=== PATIENT | female | born 1935 | race Caucasian/White ===

== ENCOUNTER 2017-12-21 00:06 | Emergency (ER) | payer MEDICARE ==
[~2017-12-21 00:06] MED LIST: ALBU8.5H3 IH; FURO20TA6 PO; METO50TA18 PO; RAMI2.5C15 PO
== END 2017-12-21 00:52 | disposition home or self-care (01) ==
LOC: EDH 00:06
DX: I10 Essential (primary) hypertension (principal); R60.9 Edema, unspecified; Z88.0 Allergy status to penicillin; Z88.2 Allergy status to sulfonamides; Z91.041 Radiographic dye allergy status; Z88.6 Allergy status to analgesic agent; Z88.1 Allergy status to other antibiotic agents
CPT/HCPCS: 99281

== ENCOUNTER → 2019-04-23 | Outpatient (CLI) | payer MEDICARE ==
[~2019-04-23] MED LIST changes: -RAMI2.5C15 PO; +RAMI2.5C16 PO
[2019-04-23 14:23] LABS: PLATELET COUNT (AUTO) 209 K/uL (130-400); PLATELET FUNCTION ANALYSIS EPI > 192 SEC (55-192)
[2019-04-23 14:35] LABS: PLATELET FUNCTION ANALYSIS ADP 140 SEC (62-100)
== END | disposition home or self-care (01) ==
LOC: LAB 13:10
PROVIDERS: ATTEND Family Medicine
DX: R23.3 Spontaneous ecchymoses (principal)
CPT/HCPCS: 36415; 85576

== ENCOUNTER → 2019-07-01 | Outpatient (CLI) | payer MEDICARE ==
[2019-07-01 15:27] LABS: PLATELET COUNT (AUTO) 256 K/uL (130-400)
[2019-07-01 15:54] LABS: PLATELET FUNCTION ANALYSIS ADP 181 SEC (62-100); PLATELET FUNCTION ANALYSIS EPI 207 SEC (55-192)
== END | disposition home or self-care (01) ==
LOC: RAH 09:00
PROVIDERS: ATTEND Family Medicine
DX: T14.8XXA Other injury of unspecified body region, initial encounter (principal); M13.831 Other specified arthritis, right wrist; X58.XXXA Exposure to other specified factors, initial encounter; Y93.89 Activity, other specified; Y92.89 Other specified places as the place of occurrence of the external cause; Y99.8 Other external cause status
CPT/HCPCS: 36415; 73221; 85576

== ENCOUNTER → 2019-11-12 | Outpatient (CLI) | payer MEDICARE | END | disposition home or self-care (01) | LOC: OIH 14:20 | PROVIDERS: ATTEND Internal Medicine Cardiovascular Disease | DX: R06.00 Dyspnea, unspecified (principal); M41.80 Other forms of scoliosis, site unspecified; M47.815 Spondylosis without myelopathy or radiculopathy, thoracolumbar region | CPT/HCPCS: 71046 ==

== ENCOUNTER → 2020-12-08 | Outpatient (CLI) | payer MEDICARE | END | disposition home or self-care (01) | LOC: SHCH 13:00 | PROVIDERS: ATTEND Internal Medicine Cardiovascular Disease | DX: I87.2 Venous insufficiency (chronic) (peripheral) (principal) | CPT/HCPCS: 93970 ==

== ENCOUNTER → 2021-04-21 | Outpatient (CLI) | payer MEDICARE ==
[~2021-04-21] MED LIST changes: -RAMI2.5C16 PO; +RAMI2.5C55 PO
== END | disposition home or self-care (01) ==
LOC: SHCH 09:56
PROVIDERS: ATTEND Internal Medicine Cardiovascular Disease
DX: I08.1 Rheumatic disorders of both mitral and tricuspid valves (principal); R55 Syncope and collapse; I27.20 Pulmonary hypertension, unspecified; Z95.3 Presence of xenogenic heart valve
CPT/HCPCS: 93306; 93356

== ENCOUNTER 2021-06-09 06:48 | Day surgery (SDC) | payer MEDICARE ==
[2021-06-07 11:30] LABS: EOSINOPHILS % (AUTO) 5.6 % (0.0-8.0); HEMATOCRIT 32.5 % (36-48); LYMPHOCYTES % (AUTO) 25.3 % (21.0-51.0); MEAN CORPUSCULAR HEMOGLOBIN 29.3 pg (27.0-33.0); MEAN CORPUSCULAR HGB CONC 32.6 g/dL (32.0-36.0); MEAN CORPUSCULAR VOLUME 89.8 fL (79-99); MONOCYTES % (AUTO) 8.1 % (3.0-13.0); NEUTROPHILS % (AUTO) 59.7 % (40.0-77.0); PLATELET COUNT (AUTO) 183 K/uL (130-400); RED BLOOD CELL COUNT(AUTO) 3.62 MIL/uL (4.00-5.50); RED CELL DISTRIBUTION WIDTH 12.2 % (11.0-15.5); WHITE BLOOD COUNT (AUTO) 6.8 K/uL (4.8-10.8)
[2021-06-07 11:41] LABS: CREATININE 0.8 mg/dL (0.5-1.5); POTASSIUM 4.7 mmol/L (3.5-5.1)
[2021-06-07 12:10] LABS: PROTHROMBIN TIME 10.9 SEC (9.6-11.6)
[2021-06-07 12:11] LABS: PARTIAL THROMBOPLASTIN TIME 25.1 SEC (26.3-35.5)
[2021-06-08 13:15] VITALS: BP 170/68
[2021-06-09] VITALS (10 sets, daily range): BP systolic 153–174; BP diastolic 41–68
[~2021-06-09] VITALS: Ht 165.1 cm; Wt 66.9 kg
[~2021-06-09 06:48] MED LIST changes: +0.9% NACL 500ML IV.SOLN 500 ML IV SCH; -ALBU8.5H3 IH; +ALBU8.5H8 IH; +FLUT1DIS4 IH; -FURO20TA6 PO; +HYDR25TA PO; +LOSA25TA41 PO; -RAMI2.5C55 PO
[2021-06-09] MEDS ORDERED: 0.9%NACL 1000ML 1,000 ML IV ONE (07:18)
[2021-06-09] MEDS ORDERED: BUPIVACAINE/PF 0.25% 30ML VIAL IJ ONE ×2 (08:28→08:49)
[2021-06-09] MEDS ORDERED: MIDAZOLAM HCL 1 MG/ML 2ML VIAL ONE ×2 (08:28→09:09)
[2021-06-09] MEDS ORDERED: LIDOCAINE HCL 1% MDV 50ML VIAL ONE (08:29)
[2021-06-09] MEDS ORDERED: VANCOMYCIN KIT 250 ML IV ONE ×2 (08:29→08:30)
[2021-06-09] MEDS ORDERED: FENTANYL CITRATE PF 50 MCG/1 ML 2ML VIAL ONE (08:29)
[2021-06-09] MEDS ORDERED: CLINDAMYCIN IVPB 600MG/50ML 100 ML IV ONE (09:00)
[2021-06-09] MEDS ORDERED: CLINDAMYCIN IVPB 600MG/50ML 50 ML IV ONE (15:00)
== END 2021-06-09 16:30 | disposition home or self-care (01) ==
LOC: DAH 06:48
PROVIDERS: ATTEND Internal Medicine Cardiovascular Disease
DX: I49.5 Sick sinus syndrome (principal); I10 Essential (primary) hypertension; I25.10 Atherosclerotic heart disease of native coronary artery without angina pectoris; F32.9 Major depressive disorder, single episode, unspecified; J45.909 Unspecified asthma, uncomplicated; Z79.01 Long term (current) use of anticoagulants; Z88.5 Allergy status to narcotic agent; Z88.8 Allergy status to other drugs, medicaments and biological substances; Z88.1 Allergy status to other antibiotic agents; Z91.040 Latex allergy status; Z88.0 Allergy status to penicillin
CPT/HCPCS: 33208; 36415; 71045; 80048; 85025; 85610; 85730; 93005; A4215; A4216; A4221; A4222; A4223 ×3; A4606; A4663; C1785; C1894; C1898 ×2; J2250 ×2; J3010; J3370 ×2; J3490 ×5; J7030; 99156; 99157

== ENCOUNTER 2021-06-29 00:49 | Emergency (ER) | payer MEDICARE ==
[~2021-06-29] VITALS: Ht 165.1 cm; Wt 66.2 kg
[~2021-06-29 00:49] MED LIST changes: -0.9% NACL 500ML IV.SOLN 500 ML IV SCH
[2021-06-29 01:29] VITALS: BP 142/53
[2021-06-29 02:56] LABS: BASOPHILS % (AUTO) 1.3 % (0.0-5.0); EOSINOPHILS % (AUTO) 9.3 % (0.0-8.0); HEMATOCRIT 34.1 % (36-48); LYMPHOCYTES % (AUTO) 30.6 % (21.0-51.0); MEAN CORPUSCULAR HEMOGLOBIN 29.4 pg (27.0-33.0); MEAN CORPUSCULAR HGB CONC 32.3 g/dL (32.0-36.0); MEAN CORPUSCULAR VOLUME 91.2 fL (79-99); NEUTROPHILS % (AUTO) 49.7 % (40.0-77.0); PLATELET COUNT (AUTO) 156 K/uL (130-400); RED BLOOD CELL COUNT(AUTO) 3.74 MIL/uL (4.00-5.50); RED CELL DISTRIBUTION WIDTH 12.3 % (11.0-15.5); WHITE BLOOD COUNT (AUTO) 8.6 K/uL (4.8-10.8)
[2021-06-29 02:59] LABS: ALBUMIN 3.9 g/dL (3.5-5.0); BILIRUBIN,TOTAL 0.3 mg/dL (0.2-1.0); CREATININE 0.7 mg/dL (0.5-1.5); TOTAL PROTEIN, SERUM 7.7 g/dL (6.0-8.3)
[2021-06-29] MEDS ORDERED: ORPHENADRINE CITRATE 30 MG/ML ML IV ONE (03:00)
[2021-06-29] MEDS ORDERED: LIDOP TP (04:13)
[2021-06-29] MEDS ORDERED: ORPH-43 PO (04:13)
== END 2021-06-29 04:39 | disposition home or self-care (01) ==
LOC: EDH 00:49
DX: M62.830 Muscle spasm of back (principal); I10 Essential (primary) hypertension; F43.9 Reaction to severe stress, unspecified; Z88.0 Allergy status to penicillin; Z88.1 Allergy status to other antibiotic agents; Z88.2 Allergy status to sulfonamides; Z88.5 Allergy status to narcotic agent; Z88.8 Allergy status to other drugs, medicaments and biological substances; Z88.6 Allergy status to analgesic agent; Z79.899 Other long term (current) drug therapy; Z79.51 Long term (current) use of inhaled steroids; Z95.0 Presence of cardiac pacemaker
CPT/HCPCS: 36415; 71045; 80053; 84484; 85025; 93005 ×2; 96374; 99285; J2360

== ENCOUNTER 2021-08-20 16:32 | Emergency (ER) | payer MEDICARE ==
[~2021-08-20] VITALS: Ht 165.1 cm; Wt 68.0 kg
[~2021-08-20 16:32] MED LIST changes: +LIDOP TP; +ORPH-43 PO
[2021-08-20 16:34] VITALS: BP 136/55
[2021-08-20 16:35] VITALS: BP 136/55
[2021-08-20 18:51] LABS: EOSINOPHILS % (AUTO) 7.4 % (0.0-8.0); HEMATOCRIT 28.5 % (36-48); LYMPHOCYTES % (AUTO) 24.6 % (21.0-51.0); MEAN CORPUSCULAR HEMOGLOBIN 29.6 pg (27.0-33.0); MEAN CORPUSCULAR HGB CONC 33.3 g/dL (32.0-36.0); MEAN CORPUSCULAR VOLUME 88.8 fL (79-99); MONOCYTES % (AUTO) 9.5 % (3.0-13.0); NEUTROPHILS % (AUTO) 57.3 % (40.0-77.0); PLATELET COUNT (AUTO) 187 K/uL (130-400); RED BLOOD CELL COUNT(AUTO) 3.21 MIL/uL (4.00-5.50); RED CELL DISTRIBUTION WIDTH 12.6 % (11.0-15.5); WHITE BLOOD COUNT (AUTO) 6.2 K/uL (4.8-10.8)
[2021-08-20 19:04] LABS: CARBON DIOXIDE 28 mmol/L (21-32); CHLORIDE 103 mmol/L (101-111); CREATININE 0.8 mg/dL (0.5-1.5); GLOMERULAR FILTR. RATE CALC 72 mL/min (>60); GLUCOSE,RANDOM 102 mg/dL (70-105); POTASSIUM 4.2 mmol/L (3.5-5.1); SODIUM SERUM 138 mmol/L (136-145); UREA NITROGEN, BLOOD 25 mg/dL (7-18)
[2021-08-20 19:17] LABS: ALANINE AMINOTRANSFERASE 28 U/L (12-78); ALBUMIN 3.5 g/dL (3.5-5.0); ASPARTATE AMINOTRANSFERASE 19 U/L (10-37); BILIRUBIN,TOTAL 0.5 mg/dL (0.2-1.0); TOTAL PROTEIN, SERUM 7.2 g/dL (6.0-8.3)
[2021-08-20 19:23] LABS: B-TYPE NATRIURETIC PEPTIDE 139 pg/mL (0-100)
[2021-08-20 19:24] LABS: CRP QUANTITATIVE < 2.00 mg/L (0.00-9.0)
== END 2021-08-20 19:50 | disposition home or self-care (01) ==
LOC: EDH 16:32
DX: I10 Essential (primary) hypertension (principal); I35.0 Nonrheumatic aortic (valve) stenosis; Z79.51 Long term (current) use of inhaled steroids; Z88.0 Allergy status to penicillin; Z88.1 Allergy status to other antibiotic agents; Z88.2 Allergy status to sulfonamides; Z88.5 Allergy status to narcotic agent; Z88.6 Allergy status to analgesic agent; Z88.8 Allergy status to other drugs, medicaments and biological substances; Z95.0 Presence of cardiac pacemaker; Z95.2 Presence of prosthetic heart valve; Z98.890 Other specified postprocedural states; Z79.899 Other long term (current) drug therapy
CPT/HCPCS: 36415; 71045; 80053; 83880; 84484; 85025; 86140; 93005

== ENCOUNTER 2022-12-03 10:49 | Emergency (ER) | payer MEDICARE ==
[~2022-12-03] VITALS: Ht 165.1 cm; Wt 65.3 kg
[2022-12-03 13:26] LABS: BASOPHILS % (AUTO) 1.2 % (0.0-5.0); EOSINOPHILS % (AUTO) 6.3 % (0.0-8.0); HEMATOCRIT 32.5 % (36-48); LYMPHOCYTES % (AUTO) 26.3 % (21.0-51.0); MEAN CORPUSCULAR HEMOGLOBIN 25.8 pg (27.0-33.0); MEAN CORPUSCULAR HGB CONC 31.4 g/dL (32.0-36.0); MEAN CORPUSCULAR VOLUME 82.3 fL (79-99); MONOCYTES % (AUTO) 9.7 % (3.0-13.0); NEUTROPHILS % (AUTO) 56.2 % (40.0-77.0); PLATELET COUNT (AUTO) 185 K/uL (130-400); RED BLOOD CELL COUNT(AUTO) 3.95 MIL/uL (4.00-5.50); RED CELL DISTRIBUTION WIDTH 15.7 % (11.0-15.5); WHITE BLOOD COUNT (AUTO) 7.7 K/uL (4.8-10.8)
[2022-12-03 13:37] LABS: CREATININE 0.7 mg/dL (0.5-1.5); POTASSIUM 4.3 mmol/L (3.5-5.1)
[2022-12-03 13:41] LABS: ALBUMIN 3.6 g/dL (3.5-5.0); TOTAL PROTEIN, SERUM 7.8 g/dL (6.0-8.3)
[2022-12-03 14:15] VITALS: BP 146/48
[2022-12-03 14:17] LABS: B-TYPE NATRIURETIC PEPTIDE 533 pg/mL (0-100)
[2022-12-03 14:36] LABS: APPEARANCE,URINE CLOUDY (CLEAR); BILIRUBIN,URINE NEGATIVE (NEGATIVE); COLOR,URINE LIGHT-YELLOW (YELLOW); GLUCOSE, URINE (UA) NEGATIVE (NEGATIVE); KETONES,URINE NEGATIVE (NEGATIVE); LEUKOCYTE ESTERASE ,URINE 500 Leu/uL (NEGATIVE); NITRATE,URINE 1+ (NEGATIVE); OCCULT BLOOD,URINE NEGATIVE (NEGATIVE); PROTEIN,URINE NEGATIVE (NEGATIVE); UROBILINOGEN,URINE 0.2 mg/dL (0.2-1.0)
[2022-12-03 14:44] LABS: BACTERIA,URINE MOD /HPF (None Seen); MUCUS,URINE RARE LPF (None Seen); OTHER CASTS, URINE 2 /LPF (None Seen); SQUAMOUS EPITHELIAL CELL,UR FEW /HPF (0-2); WBC,URINE >100 /HPF (0-1)
[2022-12-03] MEDS ORDERED: NITR100C4 PO (15:02)
== END 2022-12-03 15:05 | disposition home or self-care (01) ==
LOC: EDH 10:49
DX: N39.0 Urinary tract infection, site not specified (principal); R60.9 Edema, unspecified; I10 Essential (primary) hypertension; Z79.51 Long term (current) use of inhaled steroids; Z88.0 Allergy status to penicillin; Z88.1 Allergy status to other antibiotic agents; Z88.2 Allergy status to sulfonamides; Z88.5 Allergy status to narcotic agent; Z88.6 Allergy status to analgesic agent; Z88.8 Allergy status to other drugs, medicaments and biological substances; Z95.0 Presence of cardiac pacemaker; Z79.899 Other long term (current) drug therapy
CPT/HCPCS: 36415; 71045; 80053; 81001; 83880; 84484; 85025; 87077; 87088; 87186; 93005; 93970

== ENCOUNTER 2023-07-19 08:24 | Emergency (ER) | payer MEDICARE ==
[~2023-07-19] VITALS: Ht 165.1 cm; Wt 67.1 kg
[~2023-07-19 08:24] MED LIST changes: +NITR100C4 PO; -ORPH-43 PO; +ORPH100T4 PO
[2023-07-19 08:55] LABS: BASOPHILS # (AUTO) 0.03 K/uL (0.00-0.20); BASOPHILS % (AUTO) 0.5 % (0.0-5.0); EOSINOPHILS # (AUTO) 0.29 K/uL (0.00-0.70); EOSINOPHILS % (AUTO) 4.9 % (0.0-8.0); HEMATOCRIT 27.7 % (36-48); IMMATURE GRANULOCYTE ABSOLUTE 0.02 K/uL (0-1); LYMPHOCYTES % (AUTO) 17.3 % (21.0-51.0); MEAN CORPUSCULAR HEMOGLOBIN 30.1 pg (27.0-33.0); MEAN CORPUSCULAR HGB CONC 32.9 g/dL (32.0-36.0); MEAN CORPUSCULAR VOLUME 91.7 fL (79-99); MONOCYTES # (AUTO) 0.5 K/uL (0.1-1.0); MONOCYTES % (AUTO) 7.8 % (3.0-13.0); NEUTROPHILS # (AUTO) 4.1 K/uL (1.8-7.7); NEUTROPHILS % (AUTO) 69.2 % (40.0-77.0); PLATELET COUNT (AUTO) 187 K/uL (130-400); RED BLOOD CELL COUNT(AUTO) 3.02 MIL/uL (4.00-5.50); RED CELL DISTRIBUTION WIDTH 12.3 % (11.0-15.5); WHITE BLOOD COUNT (AUTO) 5.9 K/uL (4.8-10.8)
[2023-07-19 09:07] LABS: CREATININE 0.9 mg/dL (0.5-1.5); POTASSIUM 4.4 mmol/L (3.5-5.1)
[2023-07-19 09:11] LABS: ALBUMIN 3.2 g/dL (3.5-5.0); BILIRUBIN,TOTAL 0.4 mg/dL (0.2-1.0); TOTAL PROTEIN, SERUM 6.7 g/dL (6.0-8.3)
[2023-07-19] MEDS ORDERED: LACTATED RINGERS 1000ML 1,000 ML IV ONE (09:30)
[2023-07-19 10:24] LABS: APPEARANCE,URINE CLEAR (CLEAR); BILIRUBIN,URINE NEGATIVE (NEGATIVE); COLOR,URINE LIGHT-YELLOW (YELLOW); GLUCOSE, URINE (UA) NEGATIVE (NEGATIVE); KETONES,URINE NEGATIVE (NEGATIVE); LEUKOCYTE ESTERASE ,URINE 500 Leu/uL (NEGATIVE); NITRATE,URINE NEGATIVE (NEGATIVE); OCCULT BLOOD,URINE NEGATIVE (NEGATIVE); PROTEIN,URINE NEGATIVE (NEGATIVE); UROBILINOGEN,URINE 0.2 mg/dL (0.2-1.0)
[2023-07-19 10:31] LABS: ADD UA MICROSCOPIC YES
[2023-07-19 10:34] LABS: BACTERIA,URINE FEW /HPF (None Seen); MUCUS,URINE RARE LPF (None Seen); RBC,URINE 0-1 /HPF (0-1); SQUAMOUS EPITHELIAL CELL,UR RARE /HPF (0-2); WBC CLUMP FEW /HPF (0-1); WBC,URINE 26-50 /HPF (0-1)
[2023-07-19] MEDS ORDERED: METR375C2 PO (11:28)
[2023-07-19] MEDS ORDERED: METRONIDAZOLE 500 MG TABLET PO SCH (11:30)
[2023-07-19 12:29] VITALS: BP 159/60; PULSE 61; RESP 18; O2SAT 97
== END 2023-07-19 12:29 | disposition home or self-care (01) ==
LOC: EDH 08:24
DX: N39.0 Urinary tract infection, site not specified (principal); A04.9 Bacterial intestinal infection, unspecified; I10 Essential (primary) hypertension; Z79.51 Long term (current) use of inhaled steroids; Z88.0 Allergy status to penicillin; Z88.1 Allergy status to other antibiotic agents; Z88.2 Allergy status to sulfonamides; Z88.5 Allergy status to narcotic agent; Z88.6 Allergy status to analgesic agent; Z88.8 Allergy status to other drugs, medicaments and biological substances; Z95.0 Presence of cardiac pacemaker
CPT/HCPCS: 36415; 74018; 80053; 81001; 83690; 83880; 84484; 85025; 87088; 93005

== ENCOUNTER 2024-12-31 19:09 | Emergency (ER) | payer MEDICARE ==
[~2024-12-31] VITALS: Ht 165.1 cm; Wt 2.4 kg
[~2024-12-31 19:09] MED LIST changes: +AMLO5TAB4 PO; +ATOR40TA69 PO; +BUDE10.7 IH; +CARV12.511 PO; +CLOP-31 PO; +FAMO20TA8 PO; -HYDR25TA PO; +LEVO5TAB13 PO; -LIDOP TP; -LOSA25TA41 PO; +METO2.5T2 PO; -METO50TA18 PO; +MONT-39 PO; -NITR100C4 PO; -ORPH100T4 PO; +PANT40TA54 PO; +POTA-200 PO; +TELM40TA8 PO; +TIOT4MIS3 IH; +TRIA454O TP
[2024-12-31 20:41] LABS: BASOPHILS # (AUTO) 0.06 K/uL (0.00-0.20); BASOPHILS % (AUTO) 0.8 % (0.0-5.0); EOSINOPHILS # (AUTO) 0.27 K/uL (0.00-0.70); EOSINOPHILS % (AUTO) 3.7 % (0.0-8.0); IMMATURE GRANULOCYTE ABSOLUTE 0.01 K/uL (0-1); LYMPHOCYTES # (AUTO) 1.3 K/uL (1.0-4.8); LYMPHOCYTES % (AUTO) 18.4 % (21.0-51.0); MEAN CORPUSCULAR HEMOGLOBIN 29.8 pg (27.0-33.0); MEAN CORPUSCULAR HGB CONC 31.2 g/dL (32.0-36.0); MEAN CORPUSCULAR VOLUME 95.4 fL (79-99); MONOCYTES # (AUTO) 0.8 K/uL (0.1-1.0); MONOCYTES % (AUTO) 11.5 % (3.0-13.0); NEUTROPHILS # (AUTO) 4.8 K/uL (1.8-7.7); NEUTROPHILS % (AUTO) 65.5 % (40.0-77.0); PLATELET COUNT (AUTO) 180 K/uL (130-400); RED BLOOD CELL COUNT(AUTO) 3.46 MIL/uL (4.00-5.50); RED CELL DISTRIBUTION WIDTH 15.3 % (11.0-15.5); WHITE BLOOD COUNT (AUTO) 7.3 K/uL (4.8-10.8)
[2024-12-31 20:50] LABS: CREATININE 1.5 mg/dL (0.5-1.0); POTASSIUM 3.9 mmol/L (3.5-5.1)
[2024-12-31 20:51] LABS: INR 1.02 (0.85-1.15); PROTHROMBIN TIME 11.4 SEC (9.6-11.6)
[2024-12-31 20:53] LABS: PARTIAL THROMBOPLASTIN TIME 24.4 SEC (26.3-35.5)
[2024-12-31 20:54] LABS: MAGNESIUM 2.1 mg/dL (1.80-2.40)
[2024-12-31 20:58] LABS: B-TYPE NATRIURETIC PEPTIDE 3550 pg/mL (0-100)
--- NOTE | 2024-12-31 21:35 | HMCIMG ---
Exam Type: CHEST 1VW Clinical Information: SOB Comparison: None Findings: Status post median sternotomy. Left-sided cardiac pacemaker with leads in place without pneumothorax. There is cardiomegaly. There is prominence of the vascular markings consistent with pulmonary venous congestion. IMPRESSION: Findings consistent with pulmonary venous congestion.
--- NOTE | 2024-12-31 22:01 | HMCIMG ---
Exam Type: US VENOUS DOPPLER BILATERAL Clinical Information: LOWER EXTREMITY SWELLING Comparison: None Findings: The examination shows normal deep venous system. There is normal compressibility at all levels. There is no intraluminal clot. There is no occlusion. Adequate response is obtained on augmentation. Impression: No evidence of DVT.
[2024-12-31 23:05] VITALS: BP 137/44; PULSE 64; RESP 20; TEMP 98; O2SAT 97
--- NOTE | 2024-12-31 23:06 | ERN ---
General Chief Complaint: Lower Extremity Pain/Injury Stated Complaint: SENT BY DOCTOR, TROUBLE URINATING Time Seen by MD: 19:11 Source: patient History of Present Illness Initial Comments Patient is a an 89-year-old female coming in to be evaluated for pedal edema. Patient states she was has a extensive history of pedal edema secondary to venous stasis. She states he has been taking diuretics but they have not helped completely. Patient was advised that use compression stockings but states has not used him because they are uncomfortable and she believes they might cut off her circulation. Allergies: Coded Allergies: Penicillins (Unverified Allergy, Severe, SHORTNESS OF BREATH, 01/02/16) Sulfa (Sulfonamide Antibiotics) (Unverified Allergy, Severe, SWOLLEN TONGUE, 01/02/16) iodine (Unverified Allergy, Severe, SWELLING, 01/02/16) prednisone (Unverified Allergy, Severe, UNKNOWN, 01/02/16) paralysis shellfish derived (Unverified Allergy, Severe, 01/02/16) Meperidine HCl (Verified Allergy, Unknown, 01/03/16) codeine (Unverified Allergy, Unknown, 01/03/16) levofloxacin (Unverified Allergy, Unknown, 01/03/16) morphine (Verified Allergy, Unknown, 01/03/16) Uncoded Allergies: novaraine (Allergy, Unknown, 01/03/16) steroids (Allergy, Unknown, 01/03/16) Home Meds Active Scripts Clopidogrel Bisulfate (Plavix) 75 Mg Tablet, 75 MG PO DAILY, #30 TAB 0 Refills Prov:KARUNA PAUL MD 03/05/24 Atorvastatin Calcium (LIPITOR) 40 Mg Tablet, 40 MG PO HS, #30 TAB 0 Refills Prov:KARUNA PAUL MD 03/05/24 Amlodipine Besylate (Norvasc 5Mg Tab) 5 Mg Tablet, 10 MG PO DAILY, #30 TAB Prov:KARUNA PAUL MD 03/05/24 Reported Medications Triamcinolone Acetonide (Triamcinolone Acetonide) 0.1 % Oint...g., 453.6 GM TP TID 04/25/24 Tiotropium Br/Olodaterol HCl (Stiolto Respimat Inhal [place]) 2.5 Mcg-2.5 Mcg/Actuation Mist.inhal, 4 GM IH TID 04/24/24 Budesonide/Glycopyr/Formoterol (Breztri Aerosphere Inhaler) 160 Mcg-9 Mcg-4.8 Mcg/Actuation Hfa.aer.ad, 10.7 GM IH TID 04/24/24 Pantoprazole Sodium (Pantoprazole Sodium) 40 Mg Tablet.dr, 40 MG PO BID, TAB 04/24/24 Montelukast Sodium (Montelukast Sodium) 10 Mg Tablet, 10 MG PO PM, TAB 04/24/24 Metolazone (Metolazone) 2.5 Mg Tablet, 2.5 MG PO QMOWEFR, TAB 04/24/24 Levocetirizine Dihydrochloride (Levocetirizine Dihydrochloride) 5 Mg Tablet, 5 MG PO PM, TAB 04/24/24 Famotidine (Famotidine) 20 Mg Tablet, 20 MG PO BID, TAB 04/24/24 Potassium Chloride (Potassium Chloride) 10 Meq Tab.er.prt, 10 MEQ PO DAILY 04/24/24 Telmisartan (Telmisartan) 40 Mg Tablet, 40 MG PO HS, TAB 02/28/24 Carvedilol (Carvedilol) 12.5 Mg Tablet, 12.5 MG PO BID, TAB 02/28/24 Albuterol Sulfate (Proair Hfa) 8.5 Gm Hfa.aer.ad, 1 INH IH Q4PRN 06/08/21 Fluticasone/Salmeterol (ADVAIR 100-50 DISKUS) 14 Inh/Disk Inh, 1 INH IH BID, INHALER 06/08/21 Past Medical History Past Medical History: CHF, Heart Disease, Hypertension Medical History Other: ULCERS, SLEEP APNEA Past Surgical History: Pacer/AICD Surgical History Other: PACEMAKER (06/09/2021), HERNIA, AORTIC REPLACEMENT Female( History) History: Not Applicable ROS Dictation CONSTITUTIONAL: No chills, no fever, no weakness, no diaphoresis, no malaise. HEAD/FACE: No signs of trauma. EENT: No eye pain, no blurred vision, no tearing, no double vision, no ear pain, no ear discharge, no nose pain, no nasal congestion, no throat pain, no throat swelling, no mouth pain. RESPIRATORY: No cough, no orthopnea, no SOB, no stridor, no wheezing. CARDIOVASCULAR: No chest pain, no edema, no palpitations, no syncope. GASTROINTESTINAL/ABDOMINAL: No abdominal pain, no constipation, no diarrhea, no nausea, no vomiting. GENITOURINARY: No abnormal discharge, no dysuria, no frequent urination, no hematuria. No complaints of pain in the genitals. MUSCULOSKELETAL: No back pain, no gout, no joint pain, no joint swelling, no muscle pain, no muscle stiffness, no neck pain. INTEGUMENTARY: No change in color, no change in hair/nails, no dryness, no lesion, no lumps, no rash. NEUROLOGICAL/PSYCH: No anxiety, not depressed, no emotional problem, no headache, no numbness, no pre-existing deficit, no history of seizures, no tremors, no weakness. HEMATOLOGIC/LYMPHATIC: Not anemic, no history of blood clots, no apparent bleeding, no bruising, glands not swollen. All Systems Negative, Except as Noted. Physical Exam Physical Exam Dictation VITAL SIGNS: Reviewed. GENERAL APPEARANCE: Alert, oriented x3, no acute distress, obese. HEAD AND FACE: Non-traumatic. EYES: PERRL, pink conjunctivas, eyelid no trauma, anterior chamber clear. EARS: Pinnas intact and no signs of trauma or erythema. Ear canals clear and no discharge. TMs no erythema. NOSE: No discharge, no bleeding. OROPHARYNX: Mouth normal, teeth no caries, tongue pink. Pharynx clear, no erythema. Tonsils no exudates, no abscesses noted. Mucous membrane moist. NECK: Supple, non-tender, no thyromegaly, no masses, no JVD, no bruits. BREAST: Deferred. CHEST: No tenderness, no crepitus, no paradoxical movement, no retractions. LUNGS: Clear, well-ventilated, symmetric, no rales, no wheezing, no rhonchi, no stridor, good breath sounds bilaterally. HEART: Regular rate, regular rhythm, no murmur, no gallops. VASCULAR: No peripheral edema. ABDOMEN: Soft, positive bowel sounds, nondistended, no guarding, nontender, no rebound, no masses no hepatomegaly, no splenomegaly, no Chavis's sign, no hernias. RECTAL: Deferred. GENITAL: Deferred. NEUROLOGICAL: Normal speech, gross motor function intact, gross sensory funct ion intact. MUSCULOSKELETAL: Neck nontender, full range of motion, back nontender, full range of motion. EXTREMITIES: Nontender, full range of motion. Bilateral pedal edema SKIN: Color pink, dry, no turgor, no rash, no lacerations, no abrasions, no contusions. LYMPHATICS: Deferred. Results Laboratory and Microbiology Lab and Micro Result Laboratory Tests Test 12/31/24 20:35 White Blood Count 7.3 K/uL (4.8-10.8) Red Blood Count 3.46 MIL/uL (4.00-5.50) L Hemoglobin 10.3 g/dL (12.0-16.0) L Hematocrit 33.0 % (36-48) L Mean Corpuscular Volume 95.4 fL (79-99) Mean Corpuscular Hemoglobin 29.8 pg (27.0-33.0) Mean Corpuscular Hemoglobin Concent 31.2 g/dL (32.0-36.0) L Red Cell Distribution Width 15.3 % (11.0-15.5) Platelet Count 180 K/uL (130-400) Mean Platelet Volume 9.7 fL (7.5-10.5) Immature Granulocyte % (Auto) 0.1 % (0-1) Neutrophils (%) (Auto) 65.5 % (40.0-77.0) Lymphocytes (%) (Auto) 18.4 % (21.0-51.0) L Monocytes (%) (Auto) 11.5 % (3.0-13.0) Eosinophils (%) (Auto) 3.7 % (0.0-8.0) Basophils (%) (Auto) 0.8 % (0.0-5.0) Neutrophils # (Auto) 4.8 K/uL (1.8-7.7) Lymphocytes # (Auto) 1.3 K/uL (1.0-4.8) Monocytes # (Auto) 0.8 K/uL (0.1-1.0) Eosinophils # (Auto) 0.27 K/uL (0.00-0.70) Basophils # (Auto) 0.06 K/uL (0.00-0.20) Absolute Immature Granulocyte (auto 0.01 K/uL (0-1) Nucleated Red Blood Cells 0.0 % (0.0-0.19) Prothrombin Time 11.4 SEC (9.6-11.6) Prothromb Time International Ratio 1.02 (0.85-1.15) Activated Partial Thromboplast Time 24.4 SEC (26.3-35.5) L Sodium Level 142 mmol/L (136-145) Potassium Level 3.9 mmol/L (3.5-5.1) Chloride Level 104 mmol/L (101-111) Carbon Dioxide Level 35 mmol/L (21-32) H Blood Urea Nitrogen 44 mg/dL (7-18) H Creatinine 1.5 mg/dL (0.5-1.0) H Glomerular Filtration Rate Calc 33 mL/min (>90) Random Glucose 113 mg/dL (70-105) H Total Calcium 9.6 mg/dL (8.5-10.1) Magnesium Level 2.10 mg/dL (1.80-2.40) Total Creatine Kinase 52 U/L (21-232) # Troponin I High Sensitivity 34 ng/L (4-50) B-Type Natriuretic Peptide 3550 pg/mL (0-100) H Labs Reviewed?: Yes EKG/XRAY/US/CT/MRI EKG Comment 12/31/2024 time 11:27 p.m. Ventricular rate [address] wave elevation or depression X-RAY Comment [address] [id number] IMAGING REPORT Signed PATIENT: CHANDRIKA BARRY MR#: [id number] : 1935 SEX: F AGE: 89 LOCATION: [facility] ORDER 28 STATUS: REG ER REPORT#: [id number] SERVICE 25 REASON: SOB ORDERING PHYSICIAN: CAITY FAJARDO MD PROCEDURE: CXR1VW - CHEST 1VW Exam Type: CHEST 1VW Clinical Information: SOB Comparison: None Findings: Status post median sternotomy. Left-sided cardiac pacemaker with leads in place without pneumothorax. There is cardiomegaly. There is prominence of the vascular markings consistent with pulmonary venous congestion. IMPRESSION: Findings consistent with pulmonary venous congestion. DICTATED BY: RODOLFO LEON MD DATE: 12/31/242131 ELECTRONICALLY SIGNED BY: RODOLFO LEON MD DATE: 12/31/242134 Ultrasound Comment [address] [place] [id number] IMAGING REPORT Signed PATIENT: CHANDRIKA BARRY MR#: [id number] : 1935 SEX: F AGE: 89 LOCATION: [facility] ORDER 28 STATUS: REG ER [facility] REPORT#: [id number] SERVICE 25 REASON: LOWER EXTREMITY SWELLING ORDERING PHYSICIAN: CAITY FAJARDO MD PROCEDURE: VENOUS MARIELA - US VENOUS DOPPLER BILATERAL Exam Type: US VENOUS DOPPLER BILATERAL Clinical Information: LOWER EXTREMITY SWELLING Comparison: None Findings: The examination shows normal deep venous system. There is normal compressibility at all levels. There is no intraluminal clot. There is no occlusion. Adequate response is obtained on augmentation. Impression: No evidence of DVT. DICTATED BY: RODOLFO LEON MD DATE: 12/31/242156 ELECTRONICALLY SIGNED BY: RODOLFO LEON MD DATE: 12/31/242200 MDM MDM: Differential diagnosis: Pedal edema, cellulitis, Patient is a 89-year-old female coming in to be evaluated for lower extremity swelling. Patient has a extensive history of pedal edema currently taking Lasix but states it has not worked. Patient was placed on antibiotics and states her symptoms are still present. Ultrasound did not disclose acute findings. Patient has been educated on usage of compression stockings but states he was reluctant to do so I educated her on proper usage also demonstrated how to use Ryan wraps to compress the lower extremity. Patient will be discharged in stable condition with diagnosis of pedal edema. I would ER visit patient has been s table no shortness of breath, cough and congestion. ED Course Orders Procedure Category Date Status Time Cbc With Differential LAB 12/31/24 Complete 20:26 Prothrombin Time With LAB 12/31/24 Complete INR 20:26 B-Type Natriuretic LAB 12/31/24 Complete Peptide 20:26 Chest 1vw RAD 12/31/24 Resulted 20:26 Magnesium LAB 12/31/24 Complete 20:26 Creatine Kinase, Total LAB 12/31/24 Complete 20:26 Troponin I High LAB 12/31/24 Complete Sensitivity 20:26 Urinalysis Profile LAB 12/31/24 Logged 20:26 Partial LAB 12/31/24 Complete Thromboplastin Time 20:26 Basic Metabolic Panel LAB 12/31/24 Complete 20:26 Us Venous Doppler US 12/31/24 Resulted Bilateral 20:26 12 Lead Ekg Tracing- EKG 12/31/24 Logged Technical 23:06 Vital Signs Date Time Temp Pulse Resp B/P (MAP) Pulse Ox O2 Delivery O2 Flow Rate FiO2 12/31/24 23:05 98.1 64 20 137/44 97 Room Air* 0 21 12/31/24 21:56 62 18 139/45 98 Room Air* 0 21 12/31/24 20:03 97.5 65 20 142/43 98 Room Air* 0 21 12/31/24 19:50 98.2 67 20 140/40 95 Room Air DX & DISP Disposition: Discharge Departure Impression: Primary Impression: Pedal edema Condition: Stable Additional Instructions: FOLLOW-UP WITH PRIMARY CARE PROVIDER IN 1 TO 2 DAYS. TAKE MEDICATIONS DIRECTED HERE IN THE EMERGENCY ROOM. OKAY TO CONTINUE HOME MEDICATIONS UNLESS OTHERWISE DISCUSSED DURING YOUR VISIT IN THE EMERGENCY ROOM TODAY. RETURN TO YOUR NEAREST EMERGENCY ROOM IF SYMPTOMS WORSEN OR IF THERE IS NO IMPROVEMENT. CALL 911 IF YOU NEED IMMEDIATE ASSISTANCE. TAKE TYLENOL [id number] NEEDED AND IF NO CONTRAINDICATIONS ARE PRESENT. INCREASE ORAL HYDRATION. A WOUND CULTURE OR URINE CULTURE WAS ORDERED HERE IN THE EMERGENCY ROOM DEPARTMENT PLEASE FOLLOW-UP WITH PRIMARY CARE PROVIDER AND ADVISE THEM TO GET REPEAT PORTS FROM OUR FACILITY. IF YOU HAD ANY RYAN WRAP/SPLINTS THAT WERE APPLIED HERE, PLEASE DO NOT REMOVE THEM UNTIL YOU SEE YOUR PRIMARY CARE OR SPECIALTY. Referrals: Referrals: MILDRED KELLEY MD (PCP) Time of Disposition: 23:44 CAITY FAJARDO MD Dec 31, 2024 23:06
--- NOTE | 2025-01-01 08:05 | EKG ---
[facility] Test Date: 2024-12-31 Test Time: 23:27:23 Pat Name: CHANDRIKA BARRY Department: ED Room: Gender: F Neuropsychiatric Aide: [id number] : 1935 Requested By: CAITY FAJARDO Order Number: [id number] Reading MD: Wesly Mccarty Measurements Intervals [place] Rate: 65 P: 67 NE: 246 QRS: -19 QRSD: 114 T: 147 QT: 410 QTc: 427 Interpretive Statements Sinus rhythm Prolonged NE interval Probable left atrial enlargement LVH with secondary repolarization abnormality Anterior Q waves, possibly due to LVH Compared to ECG 02/28/2024 17:45:21 Atrial-paced complex(es) or rhythm no longer present Ventricular premature complex(es) no longer present Electronically Signed On 01-02-2025 17:14:10 [employer] REPRESENTATIVE by Wesly Mccarty Please click the below link to view image of tracing.
== END 2024-12-31 23:43 | disposition home or self-care (01) ==
LOC: EDH 19:09
DX: R60.9 Edema, unspecified (principal); I11.0 Hypertensive heart disease with heart failure; I50.9 Heart failure, unspecified; Z79.02 Long term (current) use of antithrombotics/antiplatelets; Z79.51 Long term (current) use of inhaled steroids; Z79.899 Other long term (current) drug therapy; Z88.0 Allergy status to penicillin; Z88.1 Allergy status to other antibiotic agents; Z88.2 Allergy status to sulfonamides; Z88.5 Allergy status to narcotic agent; Z88.8 Allergy status to other drugs, medicaments and biological substances; Z91.041 Radiographic dye allergy status; Z95.810 Presence of automatic (implantable) cardiac defibrillator
CPT/HCPCS: 36415; 71045; 80048; 82550; 83735; 83880; 84484; 85025; 85610; 85730; 93005; 93970; 99284; 99285